=== PATIENT | female | born 1950 | race Caucasian/White ===

== ENCOUNTER 2020-04-08 16:46 | Inpatient (IN) ==
[2020-04-08] MEDS ORDERED: Ipratropium 1 PUFF INHALER IH SCH (20:00)
[2020-04-08] MEDS: Nystatin SUSP 5 ML UD.LIQ PO SCH (21:34)
[2020-04-08] MEDS: Gabapentin 100 MG CAPSULE PO SCH (21:34)
[2020-04-08] MEDS: Ipratropium 1 PUFF INHALER IH SCH (22:50)
[2020-04-09] MEDS ORDERED: Ipratropium Neb 0.5 MG NEBULIZER IH SCH
[2020-04-09] MEDS: Ipratropium 1 PUFF INHALER IH SCH ×5 (04:42→20:47)
[2020-04-09 07:20] LABS: Basophils % 0.8 %; Eosinophils % 1.6 %; Hematocrit 32.9 % (35.3-44.9); Hemoglobin 10.5 g/dL (11.5-15.4); Immature Granulocytes % 4.1 % (0-4); Lymphocytes # 0.5 K/mcL (0.6-4.6); Lymphocytes % 43.4 %; Mean Corpuscular HGB Conc 31.9 g/dL (31.6-35.5); Mean Corpuscular Hemoglobin 29.5 pg (28.0-33.3); Mean Corpuscular Volume 92.4 fL (83.0-100.0); Mean Platelet Volume 13.6 fL (9.4-12.4); Monocytes # 0.3 K/mcL (0.0-1.3); Monocytes % 27.9 %; Neutrophils # 0.3 K/mcL (1.6-8.9); Red Blood Count 3.56 M/mcL (3.82-4.97); Red Cell Distribution Width 17.2 % (11.5-14.5); Segmented Neutrophils % 22.2 %; White Blood Count 1.2 K/mcL (4.3-11.1)
[2020-04-09 07:31] LABS: BUN/Creatinine Ratio 18 (6-26); Blood Urea Nitrogen 15 mg/dL (8-23); Calcium 8.6 mg/dL (8.6-10.3); Carbon Dioxide 27 mEq/L (23-29); Chloride 103 mEq/L (98-107); Glucose 132 mg/dL (70-105); Osmolality,Calculated 281 (280-300); Potassium 4.5 mEq/L (3.5-5.1); Sodium 134 mEq/L (136-145); eGFR For African Americans > 60 (> 60); eGFR For Non-African Americans > 60 (> 60)
[2020-04-09 07:34] LABS: Platelet Count 43 K/mcL (140-400)
[2020-04-09 08:48] LABS: Platelet Estimate Marked Decrease (Normal)
[2020-04-09] MEDS: Ascorbic Acid 500 MG TABLET PO SCH (09:26)
[2020-04-09] MEDS: Cholecalciferol (D-3) 1,000 UNIT (25MCG) TABLET PO SCH (09:26)
[2020-04-09] MEDS: lisinopriL 20 MG TABLET PO SCH (09:26)
[2020-04-09] MEDS: Nystatin SUSP 5 ML UD.LIQ PO SCH ×4 (09:27→20:55)
[2020-04-09] MEDS: Gabapentin 100 MG CAPSULE PO SCH ×3 (09:27→20:56)
[2020-04-09] MEDS: *HR* Metformin 500 MG TABLET PO SCH (09:27)
[2020-04-09] MEDS: *HR* Amiodarone 200 MG TABLET PO SCH (09:27)
[2020-04-09] MEDS: Cyanocobalamin (B-12) 1,000 MCG TABLET PO SCH (09:27)
[2020-04-10] MEDS: Ipratropium 1 PUFF INHALER IH SCH ×6 (00:24→20:13)
[2020-04-10] MEDS: Ascorbic Acid 500 MG TABLET PO SCH (10:11)
[2020-04-10] MEDS: Nystatin SUSP 5 ML UD.LIQ PO SCH ×4 (10:12→19:58)
[2020-04-10] MEDS: *HR* Metformin 500 MG TABLET PO SCH (10:12)
[2020-04-10] MEDS: Cholecalciferol (D-3) 1,000 UNIT (25MCG) TABLET PO SCH (10:12)
[2020-04-10] MEDS: Cyanocobalamin (B-12) 1,000 MCG TABLET PO SCH (10:13)
[2020-04-10] MEDS: lisinopriL 20 MG TABLET PO SCH (10:13)
[2020-04-10] MEDS: Gabapentin 100 MG CAPSULE PO SCH ×3 (10:13→19:58)
[2020-04-10] MEDS: *HR* Amiodarone 200 MG TABLET PO SCH (10:13)
[2020-04-11] MEDS: Ipratropium 1 PUFF INHALER IH SCH ×6 (00:33→20:36)
[2020-04-11] MEDS: lisinopriL 20 MG TABLET PO SCH (10:47)
[2020-04-11] MEDS: Cyanocobalamin (B-12) 1,000 MCG TABLET PO SCH (10:47)
[2020-04-11] MEDS: Ascorbic Acid 500 MG TABLET PO SCH (10:47)
[2020-04-11] MEDS: Nystatin SUSP 5 ML UD.LIQ PO SCH ×4 (10:47→19:44)
[2020-04-11] MEDS: *HR* Metformin 500 MG TABLET PO SCH (10:47)
[2020-04-11] MEDS: *HR* Amiodarone 200 MG TABLET PO SCH (10:47)
[2020-04-11] MEDS: Gabapentin 100 MG CAPSULE PO SCH ×3 (10:48→19:44)
[2020-04-11] MEDS: Cholecalciferol (D-3) 1,000 UNIT (25MCG) TABLET PO SCH (10:48)
[2020-04-11] MEDS ORDERED: *HR* Dextrose 50 % in Water (Vial) 50 ML VIAL IVP PRN (11:54)
[2020-04-11] MEDS ORDERED: Dextrose Gel 15 GM/37.5 ML TUBE PO PRN ×2 (11:54)
[2020-04-11] MEDS ORDERED: D5% in Water 1,000 ML IVC PRN (11:54)
[2020-04-11] MEDS: Insulin LISPRO 300 UNITS/3 ML VIAL SUBQ SCH ×2 (16:38→19:10)
[2020-04-12] MEDS: Ipratropium 1 PUFF INHALER IH SCH ×7 (00:03→23:51)
[2020-04-12] MEDS: Insulin LISPRO 300 UNITS/3 ML VIAL SUBQ SCH ×4 (07:45→20:29)
[2020-04-12] MEDS: lisinopriL 20 MG TABLET PO SCH (09:43)
[2020-04-12] MEDS: Cholecalciferol (D-3) 1,000 UNIT (25MCG) TABLET PO SCH (09:43)
[2020-04-12] MEDS: *HR* Amiodarone 200 MG TABLET PO SCH (09:44)
[2020-04-12] MEDS: Gabapentin 100 MG CAPSULE PO SCH ×3 (09:44→19:48)
[2020-04-12] MEDS: *HR* Metformin 500 MG TABLET PO SCH (09:44)
[2020-04-12] MEDS: Nystatin SUSP 5 ML UD.LIQ PO SCH ×4 (09:44→19:48)
[2020-04-12] MEDS: Cyanocobalamin (B-12) 1,000 MCG TABLET PO SCH (09:44)
[2020-04-12] MEDS: Ascorbic Acid 500 MG TABLET PO SCH (09:44)
[2020-04-13] MEDS: Ipratropium 1 PUFF INHALER IH SCH ×4 (04:14→15:15)
[2020-04-13 06:44] LABS: Hemoglobin 9.9 g/dL (11.5-15.4); Immature Granulocytes % 3.8 % (0-4); Lymphocytes # 0.6 K/mcL (0.6-4.6); Lymphocytes % 54.8 %; Mean Corpuscular HGB Conc 31.9 g/dL (31.6-35.5); Mean Corpuscular Hemoglobin 29.5 pg (28.0-33.3); Mean Corpuscular Volume 92.3 fL (83.0-100.0); Mean Platelet Volume 12.9 fL (9.4-12.4); Monocytes # 0.3 K/mcL (0.0-1.3); Red Blood Count 3.36 M/mcL (3.82-4.97); Red Cell Distribution Width 17.2 % (11.5-14.5); Segmented Neutrophils % 14.4 %
[2020-04-13 06:53] LABS: Neutrophils # 0.1 K/mcL (1.6-8.9); Platelet Count 50 K/mcL (140-400)
[2020-04-13 07:13] LABS: BUN/Creatinine Ratio 14 (6-26); Blood Urea Nitrogen 11 mg/dL (8-23); Carbon Dioxide 26 mEq/L (23-29); Chloride 105 mEq/L (98-107); Potassium 4.1 mEq/L (3.5-5.1); Sodium 137 mEq/L (136-145); eGFR For African Americans > 60 (> 60)
[2020-04-13 07:14] LABS: Calcium 8.4 mg/dL (8.6-10.3); Glucose 119 mg/dL (70-105); Osmolality,Calculated 285 (280-300); eGFR For Non-African Americans > 60 (> 60)
[2020-04-13] MEDS: Insulin LISPRO 300 UNITS/3 ML VIAL SUBQ SCH ×4 (07:59→21:55)
[2020-04-13] MEDS: lisinopriL 20 MG TABLET PO SCH (09:25)
[2020-04-13] MEDS: *HR* Amiodarone 200 MG TABLET PO SCH (09:25)
[2020-04-13] MEDS: Cholecalciferol (D-3) 1,000 UNIT (25MCG) TABLET PO SCH (09:25)
[2020-04-13] MEDS: Nystatin SUSP 5 ML UD.LIQ PO SCH ×4 (09:25→22:03)
[2020-04-13] MEDS: Cyanocobalamin (B-12) 1,000 MCG TABLET PO SCH (09:25)
[2020-04-13] MEDS: Ascorbic Acid 500 MG TABLET PO SCH (09:25)
[2020-04-13] MEDS: Gabapentin 100 MG CAPSULE PO SCH ×3 (09:25→22:03)
[2020-04-13] MEDS: *HR* Metformin 500 MG TABLET PO SCH (09:25)
[2020-04-13] MEDS ORDERED: Ipratropium 1 PUFF INHALER IH PRN (16:04)
[2020-04-14] MEDS: Insulin LISPRO 300 UNITS/3 ML VIAL SUBQ SCH ×4 (06:50→22:12)
[2020-04-14] MEDS: Gabapentin 100 MG CAPSULE PO SCH ×3 (09:42→22:12)
[2020-04-14] MEDS: Ascorbic Acid 500 MG TABLET PO SCH (09:43)
[2020-04-14] MEDS: Cyanocobalamin (B-12) 1,000 MCG TABLET PO SCH (09:43)
[2020-04-14] MEDS: lisinopriL 20 MG TABLET PO SCH (09:43)
[2020-04-14] MEDS: Cholecalciferol (D-3) 1,000 UNIT (25MCG) TABLET PO SCH (09:43)
[2020-04-14] MEDS: Nystatin SUSP 5 ML UD.LIQ PO SCH ×4 (09:43→22:13)
[2020-04-14] MEDS: *HR* Amiodarone 200 MG TABLET PO SCH (09:43)
[2020-04-14] MEDS: *HR* Metformin 500 MG TABLET PO SCH (09:43)
[2020-04-15 07:22] LABS: Basophils % 0.9 %; Eosinophils % 0.9 %; Hematocrit 35.2 % (35.3-44.9); Hemoglobin 11.3 g/dL (11.5-15.4); Immature Granulocytes % 5.6 % (0-4); Lymphocytes # 0.5 K/mcL (0.6-4.6); Lymphocytes % 47.7 %; Mean Corpuscular HGB Conc 32.1 g/dL (31.6-35.5); Mean Corpuscular Hemoglobin 29.4 pg (28.0-33.3); Mean Corpuscular Volume 91.7 fL (83.0-100.0); Mean Platelet Volume 11.4 fL (9.4-12.4); Monocytes # 0.3 K/mcL (0.0-1.3); Monocytes % 23.4 %; Neutrophils # 0.2 K/mcL (1.6-8.9); Red Blood Count 3.84 M/mcL (3.82-4.97); Segmented Neutrophils % 21.5 %; White Blood Count 1.1 K/mcL (4.3-11.1)
[2020-04-15] MEDS: Insulin LISPRO 300 UNITS/3 ML VIAL SUBQ SCH ×4 (07:32→21:36)
[2020-04-15 07:33] LABS: Platelet Count 76 K/mcL (140-400)
[2020-04-15 07:39] LABS: BUN/Creatinine Ratio 13 (6-26); Blood Urea Nitrogen 10 mg/dL (8-23); Calcium 8.8 mg/dL (8.6-10.3); Carbon Dioxide 28 mEq/L (23-29); Chloride 104 mEq/L (98-107); Glucose 128 mg/dL (70-105); Osmolality,Calculated 285 (280-300); Potassium 4.2 mEq/L (3.5-5.1); Sodium 137 mEq/L (136-145); eGFR For African Americans > 60 (> 60); eGFR For Non-African Americans > 60 (> 60)
[2020-04-15 08:52] LABS: Platelet Estimate Marked Decrease (Normal)
[2020-04-15] MEDS: Cholecalciferol (D-3) 1,000 UNIT (25MCG) TABLET PO SCH (09:43)
[2020-04-15] MEDS: *HR* Metformin 500 MG TABLET PO SCH (09:43)
[2020-04-15] MEDS: Gabapentin 100 MG CAPSULE PO SCH (09:43)
[2020-04-15] MEDS: *HR* Amiodarone 200 MG TABLET PO SCH (09:43)
[2020-04-15] MEDS: Ascorbic Acid 500 MG TABLET PO SCH (09:44)
[2020-04-15] MEDS: Cyanocobalamin (B-12) 1,000 MCG TABLET PO SCH (09:44)
[2020-04-15] MEDS: lisinopriL 20 MG TABLET PO SCH (09:44)
[2020-04-15] MEDS: Nystatin SUSP 5 ML UD.LIQ PO SCH ×4 (09:44→21:33)
[2020-04-15] MEDS: Gabapentin 300 MG CAPSULE PO SCH ×2 (13:53→21:33)
[2020-04-16] MEDS: Insulin LISPRO 300 UNITS/3 ML VIAL SUBQ SCH ×4 (07:46→20:23)
[2020-04-16] MEDS: Cholecalciferol (D-3) 1,000 UNIT (25MCG) TABLET PO SCH (10:35)
[2020-04-16] MEDS: Nystatin SUSP 5 ML UD.LIQ PO SCH ×4 (10:35→20:23)
[2020-04-16] MEDS: *HR* Metformin 500 MG TABLET PO SCH (10:35)
[2020-04-16] MEDS: Gabapentin 300 MG CAPSULE PO SCH ×3 (10:35→20:23)
[2020-04-16] MEDS: lisinopriL 20 MG TABLET PO SCH (10:36)
[2020-04-16] MEDS: Ascorbic Acid 500 MG TABLET PO SCH (10:36)
[2020-04-16] MEDS: *HR* Amiodarone 200 MG TABLET PO SCH (10:36)
[2020-04-16] MEDS: Cyanocobalamin (B-12) 1,000 MCG TABLET PO SCH (10:36)
[2020-04-17] MEDS: Nystatin SUSP 5 ML UD.LIQ PO SCH ×4 (07:40→20:18)
[2020-04-17] MEDS: *HR* Amiodarone 200 MG TABLET PO SCH (07:40)
[2020-04-17] MEDS: Cholecalciferol (D-3) 1,000 UNIT (25MCG) TABLET PO SCH (07:40)
[2020-04-17] MEDS: lisinopriL 20 MG TABLET PO SCH (07:40)
[2020-04-17] MEDS: *HR* Metformin 500 MG TABLET PO SCH (07:40)
[2020-04-17] MEDS: Ascorbic Acid 500 MG TABLET PO SCH (07:40)
[2020-04-17] MEDS: Gabapentin 300 MG CAPSULE PO SCH ×3 (07:40→20:18)
[2020-04-17] MEDS: Insulin LISPRO 300 UNITS/3 ML VIAL SUBQ SCH ×4 (07:41→20:18)
[2020-04-17] MEDS: Cyanocobalamin (B-12) 1,000 MCG TABLET PO SCH (07:41)
[2020-04-18] MEDS: Cholecalciferol (D-3) 1,000 UNIT (25MCG) TABLET PO SCH (08:21)
[2020-04-18] MEDS: Ascorbic Acid 500 MG TABLET PO SCH (08:21)
[2020-04-18] MEDS: lisinopriL 20 MG TABLET PO SCH (08:21)
[2020-04-18] MEDS: Gabapentin 300 MG CAPSULE PO SCH ×3 (08:22→20:00)
[2020-04-18] MEDS: Cyanocobalamin (B-12) 1,000 MCG TABLET PO SCH (08:22)
[2020-04-18] MEDS: *HR* Metformin 500 MG TABLET PO SCH (08:22)
[2020-04-18] MEDS: *HR* Amiodarone 200 MG TABLET PO SCH (08:23)
[2020-04-18] MEDS: Nystatin SUSP 5 ML UD.LIQ PO SCH ×3 (08:23→16:48)
[2020-04-18] MEDS: Insulin LISPRO 300 UNITS/3 ML VIAL SUBQ SCH ×4 (08:28→21:00)
[2020-04-19] MEDS: Insulin LISPRO 300 UNITS/3 ML VIAL SUBQ SCH ×4 (08:08→20:44)
[2020-04-19] MEDS: Cholecalciferol (D-3) 1,000 UNIT (25MCG) TABLET PO SCH (08:22)
[2020-04-19] MEDS: *HR* Metformin 500 MG TABLET PO SCH (08:22)
[2020-04-19] MEDS: Gabapentin 300 MG CAPSULE PO SCH ×3 (08:22→20:40)
[2020-04-19] MEDS: Cyanocobalamin (B-12) 1,000 MCG TABLET PO SCH (08:22)
[2020-04-19] MEDS: lisinopriL 20 MG TABLET PO SCH (08:22)
[2020-04-19] MEDS: Ascorbic Acid 500 MG TABLET PO SCH (08:22)
[2020-04-19] MEDS: *HR* Amiodarone 200 MG TABLET PO SCH (08:23)
[2020-04-20] MEDS: Insulin LISPRO 300 UNITS/3 ML VIAL SUBQ SCH ×4 (07:03→20:15)
[2020-04-20] MEDS: Cyanocobalamin (B-12) 1,000 MCG TABLET PO SCH (07:55)
[2020-04-20] MEDS: Cholecalciferol (D-3) 1,000 UNIT (25MCG) TABLET PO SCH (07:55)
[2020-04-20] MEDS: *HR* Metformin 500 MG TABLET PO SCH (07:55)
[2020-04-20] MEDS: *HR* Amiodarone 200 MG TABLET PO SCH (07:55)
[2020-04-20] MEDS: lisinopriL 20 MG TABLET PO SCH (07:55)
[2020-04-20] MEDS: Ascorbic Acid 500 MG TABLET PO SCH (07:56)
[2020-04-20] MEDS: Gabapentin 300 MG CAPSULE PO SCH ×3 (07:56→20:37)
[2020-04-21 08:19] VITALS: BP 122/79
[2020-04-21] MEDS: Insulin LISPRO 300 UNITS/3 ML VIAL SUBQ SCH (08:49)
[2020-04-21] MEDS: *HR* Metformin 500 MG TABLET PO SCH (08:53)
[2020-04-21] MEDS: Ascorbic Acid 500 MG TABLET PO SCH (08:53)
[2020-04-21] MEDS: *HR* Amiodarone 200 MG TABLET PO SCH (08:53)
[2020-04-21] MEDS: Gabapentin 300 MG CAPSULE PO SCH (08:53)
[2020-04-21] MEDS: lisinopriL 20 MG TABLET PO SCH (08:53)
[2020-04-21] MEDS: Cholecalciferol (D-3) 1,000 UNIT (25MCG) TABLET PO SCH (08:53)
[2020-04-21] MEDS: Cyanocobalamin (B-12) 1,000 MCG TABLET PO SCH (08:53)
== END 2020-04-21 10:43 | disposition home or self-care (01) | DRG 945 ==
LOC: INPPIK 19:29
PROVIDERS: ADMIT Family Medicine; ATTEND Family Medicine